=== PATIENT | female | born 1950 | race Caucasian/White ===

== ENCOUNTER 2024-02-25 06:12 | Day surgery (SDC) | payer OTHER ==
[~2024-02-25] VITALS: Ht 162.6 cm; Wt 96.2 kg
[~2024-02-25 06:12] MED LIST: ALEN35TA18 PO; BACL10TA PO; BET25T PO; CALCCHW53 PO; FURO1TAB31 PO; GABA-1250 PO; OME20T PO; POTA-220 PO; RIV20T PO
[2024-02-25] MEDS ORDERED: DexAMETHasone SOD PHOS 4 MG/1ML SDV INJ ONE (06:36)
[2024-02-25] MEDS ORDERED: EPINEPHrine HCL 1 MG/1 ML AMP ONE (06:36)
[2024-02-25] MEDS ORDERED: BUPIVACAINE HCL 50 ML ONE (06:36)
[2024-02-25] MEDS ORDERED: KETAMINE 50mg/ML 1ml syringe ONE (06:48)
[2024-02-25] MEDS ORDERED: fentaNYL CITRATE 100 MCG/2 ML VL ONE (06:48)
[2024-02-25] MEDS ORDERED: GLYCOPYRROLATE 0.2 MG/ML 1ML VIAL ONE (06:49)
[2024-02-25] MEDS ORDERED: ROCURONIUM 10MG/ML 10ML VIAL IV ONE ×2 (06:49→09:30)
[2024-02-25] MEDS ORDERED: PROPOFOL 10 MG/ML 20 ML IV ONE (06:49)
[2024-02-25] MEDS ORDERED: ONDANSETRON HCL 4 MG/2 ML VIAL ONE (06:51)
[2024-02-25] MEDS ORDERED: SUGAMMADEX 200mg/2ml Vial (100MG/ML) IV ONE (06:51)
[2024-02-25] MEDS ORDERED: KETOROLAC TROMETH 30 MG/ML 1ML VIAL ONE (06:51)
[2024-02-25] MEDS ORDERED: LIDOCAINE 1% INJ PF 5ML AMP ONE (06:51)
[2024-02-25] MEDS ORDERED: DexAMETHasone SOD PHOS 10MG/1ML VIAL INJ ONE (06:51)
[2024-02-25] MEDS ORDERED: LIDOCAINE 2% (LOCAL ANESTH.) PF 5ml SDV ONE (06:51)
[2024-02-25] MEDS ORDERED: TRANEXAMIC ACID 20 ML ONE (06:55)
[2024-02-25] MEDS ORDERED: VANCOMYCIN HCL 1000 MG VL ONE (06:57)
[2024-02-25] MEDS ORDERED: CELECOXIB 100 MG CAP ONE (07:11)
[2024-02-25] MEDS ORDERED: ceFAZolin 2 GM/D5W50ml 50 ML IV ONE (07:11)
[2024-02-25] MEDS: ACETAMINOPHEN IV 1000 MG/100ML (10MG/ML) IV ONE (07:15)
[2024-02-25] MEDS: CELECOXIB 100 MG CAP PO ONE (07:15)
[2024-02-25] MEDS ORDERED: CLINDAMYCIN 900MG IV 50 ML IV ONE (07:15)
[2024-02-25] MEDS: GABAPENTIN 400 MG CAP PO ONE (07:15)
[2024-02-25] MEDS ORDERED: ESMOLOL HCL 10 ML IV ONE (08:20)
[2024-02-25] MEDS ORDERED: LABETALOL HCL 5 MG/ML ML 20ML VIAL IV ONE (08:29)
[2024-02-25] MEDS ORDERED: BUPIVACAINE W/ EPINEPH 0.5% INJ 50ML MDV IJ ONE (10:30)
[2024-02-25] MEDS ORDERED: SODIUM CHLORIDE LOCK 10 ML ONE (11:14)
[2024-02-25] MEDS ORDERED: ceFAZolin 1GM VL ONE (11:14)
[2024-02-25] MEDS ORDERED: HYDR1TAB97 PO (12:37)
[2024-02-25] MEDS ORDERED: CEPH500C PO (12:40)
[2024-02-25] MEDS ORDERED: ASPI-498 OR (12:40)
[2024-02-25 12:49] VITALS: TEMP 98.6; O2SAT 97
[2024-02-25] MEDS ORDERED: fentaNYL CITRATE 100 MCG/2 ML VL IV PRN (13:00)
[2024-02-25] MEDS ORDERED: LABETALOL HCL 5 MG/ML 4ML SYRINGE IV PRN (13:00)
[2024-02-25] MEDS ORDERED: hydrALAZINE HCL 20 MG/ML VL IV PRN (13:00)
[2024-02-25] MEDS ORDERED: NALOXONE HCL 0.4 MG/ML VIAL IV PRN (13:00)
[2024-02-25] MEDS ORDERED: ePHEDrine SULFATE 50 MG/ML AMP IV PRN (13:00)
[2024-02-25] MEDS ORDERED: oxyCODONE HCL 5MG TAB PO PRN (13:00)
[2024-02-25] MEDS ORDERED: ONDANSETRON HCL 4 MG/2 ML VIAL IV PRN (13:00)
[2024-02-25] MEDS ORDERED: FLUMAZENIL 0.1 MG/ML INJ 10ML MDV IV PRN (13:00)
[2024-02-25] MEDS ORDERED: HYDROmorphone HCL 2 MG/ML VL/or syr ONE (13:24)
[2024-02-25] MEDS: HYDROmorphone HCL 2 MG/ML VL/or syr IV PRN (13:35)
[2024-02-25] MEDS: ONDANSETRON HCL 4 MG/2 ML VIAL ONE (14:35)
[2024-02-25 14:50] VITALS: BP 128/54; PULSE 77; RESP 13; O2SAT 94
[2024-02-25] MEDS: BUPIVACAINE 0.25% INJ 50ML VIAL ONE (15:11)
== END 2024-02-25 15:10 | disposition home or self-care (01) ==
LOC: SUR 06:12
PROVIDERS: ATTEND Orthopaedic Surgery Sports Medicine
DX: M19.012 Primary osteoarthritis, left shoulder (principal); J45.909 Unspecified asthma, uncomplicated; I12.9 Hypertensive chronic kidney disease with stage 1 through stage 4 chronic kidney disease, or unspecified chronic kidney disease; N18.30 Chronic kidney disease, stage 3 unspecified; K21.9 Gastro-esophageal reflux disease without esophagitis; E66.01 Morbid (severe) obesity due to excess calories; Z98.41 Cataract extraction status, right eye; Z98.42 Cataract extraction status, left eye; Z96.642 Presence of left artificial hip joint; Z88.2 Allergy status to sulfonamides; Z79.82 Long term (current) use of aspirin; Z86.718 Personal history of other venous thrombosis and embolism; Z79.899 Other long term (current) drug therapy; Z98.890 Other specified postprocedural states; Z68.36 Body mass index [BMI] 36.0-36.9, adult
CPT/HCPCS: 23472; 73020; 86850; 86900; 86901; C1713; C1776; J0131; J0171; J0690; J1100; J1170; J2001; J2405; J2704; J3010; J3370; J3490; 76000; J1885

== ENCOUNTER 2024-02-29 11:43 | Inpatient (IN) | payer OTHER ==
[~2024-02-29] VITALS: Ht 162.6 cm; Wt 99.0 kg
[~2024-02-29 11:43] MED LIST changes: +ASPI-498 OR; +CEPH500C PO; +HYDR1TAB97 PO
[2024-02-29 13:35] LABS: Basophils # (auto) 0 10 ^3/uL (0-0.2); Basophils % (auto) 0.3 % (0.0-2.0); Eosinophils # (auto) 0 10 ^3/uL (0-0.8); Eosinophils % (auto) 0.5 % (0.0-7.0); Hematocrit 34.9 % (36.0-46.0); Hemoglobin 11.5 g/dL (12.2-16.2); Lymphocytes # (auto) 0.9 10 ^3/uL (0.4-5.4); Lymphocytes % (auto) 18.7 % (10.0-50.0); Mean Corpuscular Hemoglobin 32.3 pg (28.0-32.0); Mean Corpuscular Hgb Conc. 33.1 g/dL (32.0-36.0); Mean Corpuscular Volume 97.7 fL (80.0-100.0); Monocytes # (auto) 0.5 10 ^3/uL (0-1.3); Monocytes % (auto) 9.8 % (0.0-12.0); Neutrophils # (auto) 3.4 10 ^3/uL (1.6-8.6); Neutrophils % (auto) 70.7 % (37.0-80.0); Red Blood Cells 3.57 10^6/uL (4.0-5.20); Red Cell Distribution Width 13.6 % (11.8-14.3); White Blood Cell 4.8 10^3/uL (4.4-10.8)
[2024-02-29 13:55] LABS: Chloride 100 mmol/L (98-107); Sodium 138 mmol/L (136-145)
[2024-02-29 13:56] LABS: Anion Gap 3 (5-15); Calcium 9.2 mg/dL (8.5-10.1); Carbon Dioxide 35 mmol/L (20-30)
[2024-02-29 14:01] LABS: BUN/Creatinine Ratio 16.7 (10.0-20.0); Blood Urea Nitrogen 13 mg/dL (9-23); Glucose 104 mg/dL (74-106)
[2024-02-29 15:01] VITALS: PULSE 67; RESP 16; O2SAT 97
[2024-02-29] MEDS: PANTOPRAZOLE 40 MG TAB PO ONE (17:18)
[2024-02-29] MEDS: predniSONE 20 MG TAB PO ONE (17:19)
[2024-02-29 17:20] VITALS: PULSE 65; RESP 17; O2SAT 95
[2024-02-29 18:51] LABS: Urine Bacteria FEW /hpf (None Seen); Urine Blood Negative /uL (Negative); Urine Clarity Clear (Clear); Urine Color Yellow (Yellow); Urine Protein, UAD Negative (Negative); Urine Specific Gravity 1.012 (1.001-1.035); Urine Urobilinogen Normal (Negative); Urine WBC 1 /hpf (0 - 5)
[2024-02-29] MEDS ORDERED: ACETAMINOPHEN 325 MG TAB PO PRN (19:30)
[2024-02-29] MEDS ORDERED: ONDANSETRON HCL 4 MG/2 ML VIAL IV PRN (19:30)
[2024-02-29] MEDS ORDERED: MORPHINE SULFATE INJ 2 MG/ml SYRG IV PRN ×2 (19:30)
[2024-02-29] MEDS ORDERED: NITROGLYCERIN 0.4 MG SL TAB SL PRN (19:30)
[2024-02-29] MEDS ORDERED: HYDROcodone-ACET 5/325MG TAB PO PRN (19:30)
[2024-02-29 20:30] VITALS: RESP 15; O2SAT 94
[2024-02-29 21:58] VITALS: BP 135/48; PULSE 71; RESP 15; O2SAT 94
[2024-02-29 23:12] VITALS: PULSE 75; RESP 18; O2SAT 95
[2024-03-01] VITALS (8 sets, daily range): BP systolic 126–152; BP diastolic 55–91; PULSE 60–80; RESP 14–20; TEMP 97.3–99.2; O2SAT 90–96
[2024-03-01 06:16] LABS: Basophils # (auto) 0 10 ^3/uL (0-0.2); Basophils % (auto) 0.1 % (0.0-2.0); Eosinophils # (auto) 0 10 ^3/uL (0-0.8); Hematocrit 34.8 % (36.0-46.0); Hemoglobin 11.4 g/dL (12.2-16.2); Lymphocytes # (auto) 0.4 10 ^3/uL (0.4-5.4); Lymphocytes % (auto) 8.8 % (10.0-50.0); Mean Corpuscular Hgb Conc. 32.9 g/dL (32.0-36.0); Mean Corpuscular Volume 97.5 fL (80.0-100.0); Monocytes # (auto) 0.3 10 ^3/uL (0-1.3); Monocytes % (auto) 5.6 % (0.0-12.0); Neutrophils # (auto) 4.2 10 ^3/uL (1.6-8.6); Neutrophils % (auto) 85.5 % (37.0-80.0); Nucleated Red Blood Cells % 0.1 %; Red Blood Cells 3.57 10^6/uL (4.0-5.20); Red Cell Distribution Width 13.4 % (11.8-14.3); White Blood Cell 4.9 10^3/uL (4.4-10.8)
[2024-03-01 06:24] LABS: Chloride 103 mmol/L (98-107); Potassium 3.9 mmol/L (3.5-5.1); Sodium 136 mmol/L (136-145)
[2024-03-01 06:25] LABS: Anion Gap 5 (5-15); Carbon Dioxide 28 mmol/L (20-30)
[2024-03-01 06:26] LABS: Calcium 8.6 mg/dL (8.7-10.4)
[2024-03-01 06:31] LABS: BUN/Creatinine Ratio 18.8 (10.0-20.0); Blood Urea Nitrogen 12 mg/dL (9-23); Glucose 129 mg/dL (74-106)
[2024-03-01] MEDS ORDERED: ESTR0.1C5 VG (11:43)
[2024-03-01] MEDS ORDERED: HYDR-4902 (11:43)
[2024-03-01] MEDS: PANTOPRAZOLE 40 MG/10 ML VIAL INJ IV SCH (11:58)
[2024-03-01] MEDS: DOCUSATE SOD 100 MG CAP PO PRN (11:59)
[2024-03-01] MEDS: predniSONE 20 MG TAB PO SCH (11:59)
[2024-03-01] MEDS ORDERED: CEPH500C PO (17:37)
[2024-03-01] MEDS: RIVAROXABAN 20 MG TAB PO SCH (18:08)
[2024-03-01] MEDS: CEPHALEXIN 250 MG CAP PO SCH (22:00)
[2024-03-01] MEDS: POTASSIUM CHL 20 Meq TABLET PO SCH (22:00)
[2024-03-01] MEDS: FUROSEMIDE 40 MG TAB PO SCH (22:00)
[2024-03-01] MEDS: BETHANECHOL CHLORIDE 25 MG TAB PO SCH (22:00)
[2024-03-01] MEDS: GABAPENTIN 300 MG CAP PO SCH (22:00)
[2024-03-01] MEDS: BACLOFEN 10 MG TAB PO SCH (22:00)
[2024-03-02 01:00] VITALS: BP 122/63; PULSE 66; RESP 19; TEMP 97.4; O2SAT 95
[2024-03-02 05:00] VITALS: BP 136/76; PULSE 73; RESP 16; TEMP 98.1; O2SAT 97
[2024-03-02 06:48] LABS: Basophils # (auto) 0 10 ^3/uL (0-0.2); Basophils % (auto) 0.4 % (0.0-2.0); Eosinophils # (auto) 0 10 ^3/uL (0-0.8); Eosinophils % (auto) 0.7 % (0.0-7.0); Hematocrit 35.9 % (36.0-46.0); Hemoglobin 11.9 g/dL (12.2-16.2); Lymphocytes # (auto) 1.3 10 ^3/uL (0.4-5.4); Lymphocytes % (auto) 21.4 % (10.0-50.0); Mean Corpuscular Hemoglobin 32.4 pg (28.0-32.0); Mean Corpuscular Hgb Conc. 33.1 g/dL (32.0-36.0); Mean Corpuscular Volume 97.7 fL (80.0-100.0); Monocytes # (auto) 0.5 10 ^3/uL (0-1.3); Monocytes % (auto) 8.3 % (0.0-12.0); Neutrophils # (auto) 4.3 10 ^3/uL (1.6-8.6); Neutrophils % (auto) 69.2 % (37.0-80.0); Red Blood Cells 3.67 10^6/uL (4.0-5.20); Red Cell Distribution Width 13.7 % (11.8-14.3); White Blood Cell 6.2 10^3/uL (4.4-10.8)
[2024-03-02 07:39] LABS: Chloride 105 mmol/L (98-107); Potassium 3.7 mmol/L (3.5-5.1); Sodium 140 mmol/L (136-145)
[2024-03-02 07:40] LABS: Anion Gap 7 (5-15); Carbon Dioxide 28 mmol/L (20-30)
[2024-03-02 07:45] LABS: BUN/Creatinine Ratio 16.3 (10.0-20.0); Blood Urea Nitrogen 13 mg/dL (9-23); Glucose 87 mg/dL (74-106)
[2024-03-02 08:16] VITALS: PULSE 70; RESP 18; O2SAT 98
[2024-03-02 08:41] VITALS: BP 114/57; PULSE 70; RESP 18; TEMP 97.8; O2SAT 91
[2024-03-02] MEDS: CALCIUM W/VIT D (600MG/400IU) TAB PO SCH (10:22)
[2024-03-02 13:00] VITALS: BP 145/68; PULSE 69; RESP 20; TEMP 97.5; O2SAT 95
[2024-03-02] MEDS: ALENDRONATE SODIUM 10 MG TAB PO SCH (15:47)
[2024-03-02 17:00] VITALS: BP 139/71; PULSE 64; RESP 18; TEMP 97.8; O2SAT 94
== END 2024-03-02 19:20 | disposition home or self-care (01) | DRG 552 ==
LOC: ER 11:43 → OVERFLOW 19:35 → EAST 22:08
PROVIDERS: ADMIT Nurse Practitioner Family; ATTEND Internal Medicine
DX: M48.061 Spinal stenosis, lumbar region without neurogenic claudication (principal); G58.8 Other specified mononeuropathies; I10 Essential (primary) hypertension; Z96.612 Presence of left artificial shoulder joint; Z86.718 Personal history of other venous thrombosis and embolism; Z79.01 Long term (current) use of anticoagulants; Z88.2 Allergy status to sulfonamides; Z82.3 Family history of stroke; R20.0 Anesthesia of skin
CPT/HCPCS: 36415; 72125; 72131; 72141; 72148; 80048; 81001; 85025; 93971; C9113; G0378

== ENCOUNTER 2025-03-14 12:56 | Emergency (ER) | payer OTHER ==
[~2025-03-14] VITALS: Ht 162.6 cm; Wt 92.0 kg
[~2025-03-14 12:56] MED LIST changes: -ASPI-498 OR; +ESTR0.1C5 VG; +HYDR-4902; -HYDR1TAB97 PO
--- NOTE | 2025-03-14 13:28 | ED.PDOC ---
Bobo. trauma (HPI) HPI Comments 74 y.o female with PMHx of DVT, presents to the ED for an evaluation of multiple lacerations s/p mechanical fall today around 11am. Patient was brought in by daughter who states patient tripped over a metal irma in the garage and fell face forward. Patient presents with laceration to left third digit, upper lip and right side forehead. Lacerations have been cleaned and dressed has been applied in triage with controlled bleeding. Patient denies feeling dizzy prior to fall or after. She denies any symptoms at this time. No recent illness. Chief Complaint: Fall Injury Time Seen by MD: 13:15 Primary Care Provider: unknown Reviewed notes: Nurses Notes, Medications, Allergies Allergies: Coded Allergies: Sulfa Antibiotics (Unverified Allergy, Intermediate, rash, 02/19/24) Home Meds Reported Medications Cephalexin Monohydrate (Cephalexin) 500 Mg Cap, 1 CAP PO TID 03/01/24 Estradiol Vaginal (Estradiol) 0.1 Mg/Gm Cre, VG 03/01/24 Hydrocodone-Acetaminophen (Hydrocodone Bitartrate/AC 5-325 mg) 1 Tab Tab 03/01/24 Gabapentin (Gabapentin) 300 Mg Cap, 300 MG PO BID, CAP 02/21/24 Baclofen (Baclofen) 10 Mg Tab, 10 MG PO TID, TAB 24 Omeprazole (Omeprazole) 20 Mg Cap, 40 MG PO DAILY, CAP 24 Bethanechol Chloride (URECHOLINE TABLET) 25 Mg Tb, 25 MG PO TID, TAB 24 Calcium Carbonate-Vitamin D W/ (Calcium 1200) Chw, 1 TAB PO DAILY, TAB.CHEW 02/21/24 Alendronate Sodium (Alendronate Sodium) 35 Mg Tab, 35 MG PO Q7D, TAB 24 Potassium Chloride (Klor-Con M20) 20 Meq Tab, 20 MEQ PO BID, TAB 24 Furosemide (Lasix) 40 Mg Tab, 40 MG PO TID, TAB 24 Rivaroxaban (Xarelto Tablet) 20 Mg Tb, 20 MG PO DAILY, TAB 02/21/24 Information Source: Patient, Relative (Daughter ) Mode of Arrival: Wheelchair Severity: Moderate Timing: Hours Duration: Since onset Location of laceration: Head, Face, Extremities Mechanism: Fall Associated signs and symtoms: Other Past Medical History Past Medical History (Other): DVT Surgical History: Cholecystectomy, Tubal Ligation Surgical History (Other): cataracts and left hip replacement 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 WING MAILER MACHINE OPERATOR History Family History Family History: Reviewed,noncontributory to illness, No family hx of Cancer, No family hx of DM, No family hx of Heart arturo, No family hx of HTN, No family hx ofKidney arturo, No family hx of Liver arturo, No family hx of Lung arturo, No family hx of Stroke Social History Smoker: Non-Smoker Alcohol: Denies ETOH Use Drugs: Denies Drug Use Lives In: Home Constitutional: denies: chills, diaphoresis, fatigue, fever, malaise, sweats, weakness, others EENTM: denies: blurred vision, double vision, ear bleeding, ear discharge, ear drainage, ear pain, ear ringing, eye pain, eye redness, hearing loss, mouth pain, mouth swelling, nasal discharge, nose bleeding, nose congestion, nose pain, photophobia, tearing, throat pain, throat swelling, voice changes, others Respiratory: denies: cough, hemoptysis, orthopnea, SOB at rest, shortness of breath, SOB with excertion, stridor, wheezing, others Cardiovascular: denies: chest pain, dizzy spells, diaphoresis, Dyspnea on exertion, edema, irregular heart beat, left arm pain, lightheadedness, palpitations, PND, syncope, others Gastrointestinal: denies: abdomen distended, abdominal pain, blood streaked bowels, constipated, diarrhea, dysphagia, difficulty swallowing, hematemesis, melena, nausea, poor appetite, poor fluid intake, rectal bleeding, rectal pain, vomiting, others Genitourinary: denies: abnormal vagina bleeding, burning, dyspareunia, dysuria, flank pain, frequency, hematuria, incontinence, pain, , vagina discharge, urgency, others Neurological: denies: dizziness, fainting, headache, left sided numbness, left sided weakness, numbness, paresthesia, pre-existing deficit, right sided numbness, right sided weakness, seizure, speech problems, tingling, tremors, weakness, others Musculoskeletal: denies: back pain, gout, joint pain, joint swelling, muscle pain, muscle stiffness, neck pain, others Integumetry: reports: laceration (left third digit, upper lip and right sided forehead ); denies: bruises, change in color, change in hair/nails, dryness, lesions, lumps, rash, wounds, others Allergic/Immunocompromised: denies: Difficulty Healing, Frequent Infections, Hives, Itching, others Hematologic/Lymphatic: denies: anemia, blood clots, easy bleeding, easy bruising, swollen glands, others Endocrine: denies: excessive hunger, excessive sweating, excessive thirst, excessive urination, flushing, intolerance to cold, intolerance to heat, unexplained weight gain, unexplained weight loss, others Psychiatric: denies: anxiety, bipolar disorder, depression, hopeless, panic disorder, schizophrenia, sleepless, suicidal, others All Other Systems: Reviewed and Negative Physical Exam General Appearance: Mild Distress HEENT: Normal ENT Inspection, Pharynx Normal, TMs Normal Neck: Full Range of Motion, Non-Tender, Normal, Normal Inspection Respiratory: Chest Non-Tender, Lungs Clear, No Accessory Muscle Use, No Respiratory Distress, Normal Breath Sounds Cardiovascular: No Edema, No JVD, No Murmur, No Gallop, Normal Peripheral Pulses, Regular Rate/Rhythm Breast Exam: Deferred Gastrointestinal: No Organomegaly, Non Tender, No Pulsatile Mass, Normal Bowel Sounds, Soft Genitalia: Deferred Pelvic: Deferred Rectal: Deferred Extremities: No calf tenderness, Normal capillary refill, No pedal edema, Other (Left hand 3rd digit laceration at the tip of the finger) Musculoskeletal : Apperance: Normal Neurologic: Alert, cabin crew II-XII nml as Tested, No Motor Deficits, Normal Affect, Normal Mood, No Sensory Deficits Cerebellar Function: Normal Reflexes: Normal Skin: Dry, Lacerations (Laceration to the forehead measuring 3 cm and laceration to the upper lip area measuring 3 cm), Normal Color, Warm Lymphatic: No Adenopathy Was a procedure done? Was a procedure done?: Yes Sedation Sedation?: No Informed consent obtained: Yes Laceration Repair : Location Left finger at the tip of the 3rd digit, forehead measuring 3 cm and upper lip measuring 3 cm Length 3 cm, 3 cm and 2 cm on the finger Anesthetic: Lidocaine, Without epi Laceration Repair Prep: Saline Laceration Repair Wound Comple: epidermis/dermis repair Laceration Repair: Number of sutures (A total of six sutures), Layers Closed (One layer closure), Size (Five 0 Ethilon and four 0 Ethilon), Nylon, Dermabond Informed consent obtained: Yes Risks, benefits, and alternati: Yes Images 1 - 3 cm laceration 2 - 3 cm laceration 1 - 3 cm laceration Differential Diagnosis Multiple Trauma: Closed Head Injury, Fractures, Abrasions, Contusion, Hematoma, Laceration X-Ray, Labs, Meds, VS Vital Signs Date Time Temp Pulse Resp B/P (MAP) Pulse Ox O2 Delivery O2 Flow Rate FiO2 03/14/25 15:05 Room Air* 0 21 03/14/25 13:07 98.2 68 18 139/69 (92) 94 98.2 Current Medications Medications (Trade) Dose Ordered Sig/Beny Route Start Time Stop Time Status Last Admin Lidocaine HCl (Xylocaine 1%) 10 ml ONCE ONCE ID 03/14/25 13:30 03/14/25 13:31 DC 03/14/25 15:05 Bacitracin 1 applic ONCE ONCE TOP 03/14/25 13:30 03/14/25 13:31 DC 03/14/25 15:05 CT HEAD WITHOUT CONTRAST IMPRESSION: 1. No evidence of acute intracranial hemorrhage, mass effect or hydrocephalus. At this time, the patient will be discharged The patient tolerated the sutures without any difficulty The patient has tolerated the Dermabond to the left finger as well as Steri- Strips The patient was dressed in sterile fashion The patient will return to the emergency department's condition worsens. The patient and the patient's daughter was given head trauma instructions Time of 1ST Reevaluation: 13:23 Reevaluation 1ST: Unchanged Time of 2ND Reevaluation: 15:44 Reevaluation 2ND: Improved Patient Education/Counseling: Diagnosis, Treatment, Prognosis, Need For Follow Up Family Education/Counseling: Diagnosis, Treatment, Prognosis, Need For Follow Up Departure 1 Departure Time of Disposition: 15:42 Impression: Primary Impression: Blunt head trauma Qualified Codes: S09.8XXA - Other specified injuries of head, initial encounter Additional Impressions: Forehead laceration Qualified Codes: S01.81XA - Laceration without foreign body of other part of head, initial encounter Laceration of frenum of upper lip Qualified Codes: S01.511A - Laceration without foreign body of lip, initial encounter Laceration of left hand Qualified Codes: S61.412A - Laceration without foreign body of left hand, initial encounter Disposition: HOME / SELF CARE / HOMELESS Condition: Fair Discharged With: Self Critical Care Note Critical Care Time?: No Stability Stability form required: No Heart Score Heart Score: Heart Score Response (Comments) Value History N/A 0 EKG N/A 0 Age N/A 0 Risk Factors N/A 0 Troponin N/A 0 Total 0 I personally scribed for VERONIKA ROGER MD ([email or web address]) on 03/14/25 at 13:28. Electronically submitted by Valentina Johnson ([employer]). I personally scribed for VERONIKA ROGER MD ([email or web address]) on 03/14/25 at 14:52. Electronically submitted by Valentina Johnson ([employer]). VERONIKA ROGER MD March 14, 2025 13:28
--- NOTE | 2025-03-14 14:46 | DVH ---
CT HEAD WITHOUT CONTRAST INDICATION: fall COMPARISON: None TECHNIQUE: CT of the head without intravenous contrast. RADIATION DOSE: CTDIvol: 56 mGy, DLP: 1017 mGy*cm FINDINGS: There is no evidence of acute intracranial hemorrhage, extra-axial collection, mass effect, midline s hift, herniation or hydrocephalus. The ventricles, sulci and cisterns are age appropriate. The bhatia -white differentiation is intact. The visualized paranasal sinuses and mastoid air cells are clear. The surrounding soft tissues and osseous structures are unremarkable. IMPRESSION: 1. No evidence of acute intracranial hemorrhage, mass effect or hydrocephalus.
[2025-03-14] MEDS: BACITRACIN TOP OINT 1 UD PKG TOP ONE (15:05)
[2025-03-14] MEDS: LIDOCAINE 1% (LOCAL ANESTH.) PF 5ml SDV ID ONE (15:05)
[2025-03-14 16:20] VITALS: BP 136/60; PULSE 68; RESP 14; TEMP 98; O2SAT 95
== END 2025-03-14 16:27 | disposition home or self-care (01) ==
LOC: ER 12:56
DX: S01.511A Laceration without foreign body of lip, initial encounter (principal); S01.81XA Laceration without foreign body of other part of head, initial encounter; S61.412A Laceration without foreign body of left hand, initial encounter; Z79.899 Other long term (current) drug therapy; Z86.718 Personal history of other venous thrombosis and embolism; Z90.49 Acquired absence of other specified parts of digestive tract; Z98.51 Tubal ligation status; Z88.2 Allergy status to sulfonamides; W01.0XXA Fall on same level from slipping, tripping and stumbling without subsequent striking against object, initial encounter; Y93.89 Activity, other specified; Y92.89 Other specified places as the place of occurrence of the external cause; Y99.8 Other external cause status
CPT/HCPCS: 12002; 12013; 70450